=== PATIENT | female | born 1990 | race Two or more races ===

== ENCOUNTER 2018-10-05 11:58 | Emergency (ER) | payer MEDICAID, SELFPAY ==
[~2018-10-05] VITALS: Ht 167.6 cm; Wt 88.5 kg
[~2018-10-05 11:58] MED LIST: HYDR-3164 PO; NAPR-514 PO
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
[2018-10-05 14:00] VITALS: BP 119/63
== END 2018-10-05 14:09 | disposition home or self-care (01) ==
LOC: ER 11:58
DX: S09.8XXA Other specified injuries of head, initial encounter (principal); M54.2 Cervicalgia; V43.62XA Car passenger injured in collision with other type car in traffic accident, initial encounter; Y93.89 Activity, other specified; Y92.410 Unspecified street and highway as the place of occurrence of the external cause; Y99.8 Other external cause status
CPT/HCPCS: 70450; 72125; 99284